=== PATIENT | female | born 1955 | race Asian ===

== ENCOUNTER 2017-03-11 08:30 | Inpatient (IN) | payer OTHER ==
[2017-03-07 18:40] VITALS: BMI 29.0
[2017-03-11] MEDS ORDERED: DEXAMETHASONE SOD PHOSPHATE/PF 10 MG/ML SDV ONE (10:41)
[2017-03-11] MEDS ORDERED: ROPIVACAINE HCL 0.5% 30ML VIAL ONE (10:41)
[2017-03-11] MEDS ORDERED: LIDOCAINE HCL 1%, 10 MG/ML (20ML VIAL) ONE (10:41)
[2017-03-11] MEDS ORDERED: MIDAZOLAM HCL 2 MG/2 ML SINGLE DOSE VIAL ONE ×2 (10:43)
[2017-03-11] MEDS ORDERED: ISOSULFAN BLUE 10 MG/ML VIAL SQ ONE (11:57)
[2017-03-11] MEDS ORDERED: PROPOFOL 20 ML ONE ×3 (11:58→12:39)
[2017-03-11] MEDS ORDERED: ceFAZolin SODIUM 1 GM VIAL ONE ×2 (12:02→18:18)
[2017-03-11] MEDS ORDERED: ceFAZolin SODIUM 1 GM VIAL IVPB ONE ×2 (12:05→12:19)
[2017-03-11] MEDS ORDERED: ONDANSETRON 4 MG/2 ML VIAL ONE (12:07)
[2017-03-11] MEDS ORDERED: oxyCODONE HCL 5 MG TABLET PO PRN ×2 (13:08→13:33)
[2017-03-11] MEDS ORDERED: ONDANSETRON 4 MG/2 ML VIAL IVPUSH PRN (13:08)
[2017-03-11] MEDS ORDERED: LACTATED RINGERS SOLUTION 1,000 ML IV SCH (13:15)
[2017-03-11] MEDS ORDERED: hydrOXYzine HCL 100 MG/2 ML VIAL IM PRN (13:33)
[2017-03-11] MEDS ORDERED: ONDANSETRON 4 MG/2 ML VIAL IVPB PRN (13:33)
[2017-03-11] MEDS ORDERED: MEPERIDINE HCL CARPU-JECT 50 MG/1 ML DISP.SYRIN IM PRN (13:33)
[2017-03-11] MEDS ORDERED: DEXTROSE 5%-0.45% SALINE 1,000 ML IV SCH (14:45)
[2017-03-11] MEDS ORDERED: CEFAZOLIN (PRE-DOCKED) 50 ML IVPB SCH (18:00)
[2017-03-11] MEDS ORDERED: DEXTROSE 5%-WATER - 50 ML IVPB ONE (18:19)
[2017-03-11] MEDS: CEFAZOLIN 1 GM in DEXTROSE 5%-WATER - 50 ML IVPB SCH (18:24)
[2017-03-11] MEDS ORDERED: PT OWN MED DRAWER 7, Y5N ONE (21:18)
[2017-03-12] MEDS ORDERED: ceFAZolin SODIUM 1 GM VIAL ONE ×2 (00:59→09:04)
[2017-03-12] MEDS ORDERED: DEXTROSE 5%-WATER - 50 ML IVPB ONE ×2 (01:00→09:04)
[2017-03-12] MEDS: ACETAMINOPHEN 500 MG TABLET (FP) PO PRN ×2 (01:03→11:53)
[2017-03-12] MEDS: CEFAZOLIN 1 GM in DEXTROSE 5%-WATER - 50 ML IVPB SCH ×2 (01:04→09:31)
--- NOTE | 2017-03-12 06:46 | OP ---
DATE OF OPERATION: 03/11/2017 PREOPERATIVE DIAGNOSIS: Right breast cancer. POSTOPERATIVE DIAGNOSIS: Right breast cancer. PROCEDURE: Right total mastectomy and sentinel node biopsy. SURGEON: Jaymie Brown MD TOWER LOADER OPERATOR: Dr. Flaherty ANESTHESIA: Paravertebral block and IV sedation. ESTIMATED BLOOD LOSS: 200 mL. DRAINS: JALIL x2. COMPLICATIONS: None. This was a sterile procedure. INDICATIONS: Patient presented with a palpable mass in the inferior right breast. This was highly suspicious on mammography and ultrasound. On ultrasound, she also had a second nodule closer to the nipple also in the right 6 o'clock location. Both these areas of biopsy showed an infiltrating ductal carcinoma. We discussed options of a lumpectomy with radiation versus mastectomy as well as a sentinel node biopsy, and she chose to have a mastectomy without reconstruction. The procedure was discussed with all the questions answered. PROCEDURE IN DETAIL: Patient was brought to [facility], taken down to nuclear medicine where technetium level sulfur colloid was injected as an intradermal injection in the right 6 o'clock areolar border by the life support technician. She was then brought up to the operating room, and after a paravertebral block and IV sedation, as well as IV antibiotics, the right breast and axilla were prepped and draped in the usual sterile fashion. Then, 5 mL of isosulfan blue dye was injected into the right subareolar plexus through four different incisions at the areolar border by me. The breast and axilla were then reprepped and redraped, and a 4-cm incision was made in the right axilla, carried down to the clavipectoral fascia to identify a set of blue and hot lymph nodes. There seemed to be about three together. This was taken as right axillary sentinel node No. 1 hot and blue. There was no other blue dye or radioactivity within the right axilla. There was another lymph node that was not blue or hot. However, it had a firmness to it. Therefore, I took it as a right axillary non-sentinel node. This was also sent to pathology for permanent section. Hemostasis was assured with electrocautery. Next a right mastectomy was performed. Ellipse of skin was taken to include the skin over the palpable mass in the right 6 o'clock location as well as the nipple areolar complex. Superior and inferior medial and lateral flaps were raised, and the breast was reflected off the pectoralis muscle, tacked with a stitch at the lateral edge, and sent it as a right mastectomy. There was excess skin that I took the entire edge of the superior flap, approximately 1 inch thick, as well as part of the inferior flap, as well, and this was tagged with a long stitch lateral, short stitch superior, sent as a right superior flap. I also took an additional smaller inferior flap for better closure of skin, and this was sent as right inferior flap. I did put a silk stitch, provided that way I was the closest on the skin to the tumor in the right 6 o'clock location. Once hemostasis was assured with electrocautery, through two separate stab wounds, two 10-mm JALIL drains were placed within the mastectomy flaps and secured to the skin with a 3-0 nylon stitch. Once hemostasis was assured, the skin was closed with skin stapler, sterile dressing of Vaseline gauze, fluffs, and ABDs were applied as well as a mammary binder. She tolerated the procedure well, was taken to recovery in good condition. Stan [id number]
[2017-03-12 13:58] VITALS: BP 108/74; PULSE 79; TEMP 98.5
--- NOTE | 2017-03-12 14:40 | PN ---
Progress Note (short form) - Note Progress Note: pod 1 afeb, vss R mastectomy site intact, JPs in place. d/c home today
--- NOTE | 2017-03-15 16:05 | PATH ---
Surgical Pathology Report Patient Name: SHERYL SAMPSON [facility]. Rec. #: [id number] /Age/Gender: 1955 (Age: 61) / F Account: [id number] Location: [facility] MED/SURG Taken: 03/11/2017 Received: 03/12/2017 Reported: 03/15/2017 Physicians: Jaymie Brown M.D. Specimen(s) Received A: RIGHT AXILLARY SENTINEL LYMPH NODE B: RIGHT AXILLARY NON-SENTINAL NODE C: RIGHT BREAST, MASTECTOMY D: RIGHT SUPERIOR MASTECTOMY FLAP E: RIGHT INFERIOR MASTECTOMY FLAP Clinical History Mastectomy: Invasive carcinoma Final Diagnosis A. LYMPH NODE, RIGHT AXILLARY SENTINEL, EXCISION: METASTATIC CARCINOMA INVOLVING ONE OF TWO LYMPH NODES (1/2); THE LARGEST FOCUS OF METASTATIC CARCINOMA MEASURES 3 MM IN GREATEST DIMENSION (MACROMETASTASIS). EXTRANODAL EXTENSION IS PRESENT. B. LYMPH NODE, RIGHT AXILLARY NON-SENTINEL, EXCISION: METASTATIC CARCINOMA INVOLVING ONE OF ONE LYMPH NODE (1/1); THE LARGEST FOCUS OF METASTATIC CARCINOMA MEASURES 1.5 MM IN GREATEST DIMENSION (MICROMETASTASIS). NO EXTRANODAL EXTENSION IS IDENTIFIED. C. BREAST, RIGHT, MASTECTOMY: MULTIPLE (AT LEAST FOUR) FOCI OF INVASIVE DUCTAL CARCINOMA, MODERATELY DIFFERENTIATED (TUBULE SCORE: 3/3, NUCLEAR GRADE: 2/3, MITOTIC SCORE: 2/3; TOTAL HANNAH SCORE: 7/9), PRESENT IN THE LOWER OUTER QUADRANT (LOQ): THE LARGEST FOCUS OF INVASIVE CARCINOMA MEASURES 2.7 CM IN GREATEST DIMENSION (GROSS MEASUREMENT) WITH SURROUNDING SATELLITE TUMOR NODULES (AT LEAST THREE) RANGING FROM 2-8 MM IN GREATEST DIMENSION. DUCTAL CARCINOMA IN SITU (DCIS), CRIBRIFORM AND SOLID TYPE, INTERMEDIATE NUCLEAR GRADE IS PRESENT IN THE LOQ ADMIXED WITH INVASIVE CARCINOMA WELL MULTIPLE SCATTERED FOCI PRESENT IN THE REMAINING THREE QUADRANTS. SURGICAL MARGINS ARE UNINVOLVED BY CARCINOMA; CARCINOMA IS AT 4 MM FROM THE CLOSEST (ANTERIOR) MARGIN. THE LARGEST FOCUS OF INVASIVE CARCINOMA INVADES DEEP DERMIS OF SKIN; NO SKIN ULCERATION IS IDENTIFIED. NIPPLE IS UNINVOLVED BY CARCINOMA. A FEW FOCI SUSPICIOUS FOR LYMPHOVASCULAR INVASION ARE IDENTIFIED. PRIOR BIOPSY SITE CHANGES ARE IDENTIFIED. REMAINING BREAST TISSUE SHOWS SMALL FIBROADENOMAS, PROLIFERATIVE FIBROCYSTIC CHANGES AND SCLEROSING ADENOSIS. PATHOLOGIC STAGE (pTNM): pT2(m) pN1a. SEE ALSO INVASIVE CARCINOMA CASE SUMMARY BELOW. D. MASTECTOMY FLAP, RIGHT SUPERIOR, EXCISION: SKIN SHOWING SEBORRHEIC KERATOSIS. NEGATIVE FOR MALIGNANCY. E. MASTECTOMY FLAP, RIGHT INFERIOR, EXCISION: SKIN WITH NO PATHOLOGIC FINDINGS. NEGATIVE FOR MALIGNANCY. Comments Breast Invasive Carcinoma: Surgical Pathology Cancer Case Summary Based on AJCC/UICC TNM, 7th edition Procedure _X_ Total mastectomy (including nipple and skin) Lymph Node Sampling _X_ [place] lymph node(s) Specimen Laterality _X_ Right Tumor Size: Size of Largest Invasive Carcinoma: 2.7 cm Tumor Focality _X_ Multiple foci of invasive carcinoma Number of foci: 4 Sizes of individual foci: 0.2 cm, 0.2 cm, 0.8 cm, 2.7 cm Macroscopic and Microscopic Extent of Tumor Skin _X_ Invasive carcinoma directly invades into the dermis or epidermis without skin ulceration Nipple _X_ DCIS does not involve the nipple epidermis Ductal Carcinoma In Situ (DCIS) _X_ DCIS is present _X_ as a minor component (< 25% of tumor) Histologic Type of Invasive Carcinoma : _X_ Invasive carcinoma of no special type (ductal, not otherwise specified) Histologic Grade: (Logan Histologic Score) Tubular Differentiation _X_ Score 3 Nuclear Pleomorphism _X_ Score 2 Mitotic Rate _X_ Score 2 Overall Grade _X_ Grade 2: scores of 6 or 7 (moderately differentiated) Margins _X_ Margins uninvolved by invasive carcinoma Distance from closest margin: 4 mm from anterior margin _X_ Margins uninvolved by DCIS Distance from closest margin: > 1 cm Lymph-Vascular Invasion _X_ Indeterminate Lymph Nodes Total number of lymph nodes examined (sentinel and nonsentinel): 3 Number of sentinel lymph nodes examined: 2 Number of lymph nodes with macrometastases ( > 2 mm): 1 Number of lymph nodes with micrometastases (>0.2 mm to 2 mm and/or >200cells):1 Number of lymph nodes with isolated tumor cells (=0.2 mm and =200 cells): 0 Size of largest metastatic deposit : 3 mm Extranodal Extension _X_ Present Pathologic Staging (pTNM) Primary Tumor (Invasive Carcinoma): pT2(m) Regional Lymph Nodes (pN): pN1a(sn) Biomarker Studies Results of ER and WY studies performed on prior biopsy ([id number]) at [facility] are as follows: ER (clone [id number] mouse monoclonal antibody by [employer]) : >95 % nuclear staining with strong intensity (Positive). WY (clone16 mouse monoclonal antibody by [employer]): > 95 % nuclear staining with strong to moderate intensity (Positive). Results of Her2 (IHC) & Ki-67 studies performed on prior biopsy ( [id number]) at [place], [place] ( [id number] ) are as follows: Her2 IHC (EP3 from [employer], formerly known as [id number], using S[employer] Polymer Refine detection kit): 0 (Negative). Ki67: 15-20% (Intermediate proliferative index). Electronically Signed Opal Garcia M.D. Gross Description A. Received in formalin labeled "right axillary sentinel node," are 2 ramos blue, irregular lymph nodes measuring 1.5 x 1.0 x 0.6 cm and 1.5 x 0.9 x 0.6 cm. The nodes are bisected and entirely submitted in 4 cassettes as follows: 1-2-one whole bisected lymph node; 3-4-one whole bisected lymph node. B. Received in formalin labeled "right axillary non-sentinel node," is a 1.1 x 0.8 x 0.6 cm ramos, irregular lymph node with attached fat. The specimen is bisected and entirely submitted in one cassette. C. Received in formalin, labeled "right mastectomy," is a 1145 gram, 18.0 x 17.0 x 7.8 cm. right mastectomy specimen with a suture marking the lateral edge of the skin, per the surgeon. The anterior surface displays a 14.5 x 9.5 cm ramos, elliptical portion of skin with a 1.1 cm in diameter nipple. The deep margin is inked black and the anterior soft tissue margin is inked blue. The specimen is serially sectioned from lateral to medial. Sectioning reveals a 2.7 x 1.7 x 1.5 cm ramos, firm mass in the lower outer quadrant (LOQ), abutting the skin. The mass is at 0.4 cm from the anterior soft tissue margin. There is a 0.8 x 0.6 x 0.6 cm additional mass with a focus of hemorrhage at 2 cm superior to the first mass, also in LOQ. The second mass is at 2 cm from the skin. The remaining breast parenchyma displays multiple foci of dense white fibrous tissue. Racing Board Marker sections are submitted in 27 cassettes as follows: 1-serially sectioned nipple; 2-subareolar shave; 3-4-one full-thickness bisected section of mass; 5-4-scfakjcbtv full-thickness bisected section of mass; 7-additional mass; 8-14-LOQ, second mass with associated hemorrhage; 02-11-dpggwuzayx LOQ tissue; 17-19-upper outer quadrant; 20-22-upper inner quadrant; 23-25-lower inner quadrant; 26-skin and anterior soft tissue margin; 27-deep margin. Time to formalin fixation: Not given Total formalin fixation time: Approximately 24 hours D. Received in formalin labeled "right superior mastectomy flap," is a 23.5 x 12.0 cm ramos, irregular portion of skin excised to depth of 1.1 cm. There is a short suture marking the superior aspect and a long suture marking the lateral aspect of the specimen, per the surgeon. The epidermal surface displays 2 ramos-brown, irregular nodules measuring 0.5 x 0.3 cm and 0.8 x 0.7 cm at the superior-medial aspect of the specimen. The remaining epidermal surface is unremarkable. The specimen is inked as follows: Superior blue; inferior green; lateral red; medial yellow. Sectioning reveals unremarkable underlying soft tissue. Racing Board Marker sections are submitted in 8 cassettes as follows: 1-2-larger epidermal nodule; 3-smaller epidermal nodule; 4-7-xrhhmktj margin; 7-superior margin; 8-medial and lateral margins. E. Received in formalin labeled "right inferior mastectomy flap," is a 2.8 x 1.0 cm ramos, elliptical, unoriented portion of skin excised to a depth of 0.8 cm. The epidermal surface is unremarkable. Sectioning reveals unremarkable underlying soft tissue. The specimen is serially sectioned and entirely submitted in 2 cassettes. 03/12/201703/12/2017
== END 2017-03-12 15:30 | disposition home or self-care (01) | DRG 580 ==
LOC: JSAMEDAYSX 08:30 → EDSTATUS 11:00 → J8W 16:45
PROVIDERS: ADMIT Surgery; ATTEND Surgery
PROC: 0HTT0ZZ Resection of Right Breast, Open Approach (ICD-10-PCS; principal; 2017-03-11 11:00)
PROC: 07B50ZZ Excision of Right Axillary Lymphatic, Open Approach (ICD-10-PCS; 2017-03-11 11:00)
DX: D05.11 Intraductal carcinoma in situ of right breast (principal); C77.3 Secondary and unspecified malignant neoplasm of axilla and upper limb lymph nodes; C50.511 Malignant neoplasm of lower-outer quadrant of right female breast
CPT/HCPCS: 88305-TC; 88307-TC; 94760; A9541

== ENCOUNTER 2017-03-26 11:30 | Day surgery (SDC) | payer OTHER ==
[2017-03-25 14:01] VITALS: BMI 29.0
[2017-03-26] MEDS ORDERED: DESFLURANE GAS 240 ML BOTTLE IH ONE (13:07)
[2017-03-26] MEDS ORDERED: MIDAZOLAM HCL 2 MG/2 ML SINGLE DOSE VIAL ONE (13:12)
[2017-03-26] MEDS ORDERED: LIDOCAINE HCL/PF 2% SDV 5ML VIAL ONE (13:13)
[2017-03-26] MEDS ORDERED: DEXAMETHASONE SOD PHOSPHATE 4 MG/1 ML VIAL ONE (13:13)
[2017-03-26] MEDS ORDERED: PROPOFOL 20 ML ONE ×2 (13:14)
[2017-03-26] MEDS ORDERED: BUPIVACAINE HCL/PF 0.5% (5MG/ML) 10 ML VIAL ONE (13:20)
[2017-03-26] MEDS ORDERED: ISOSULFAN BLUE 10 MG/ML VIAL SQ ONE (13:20)
[2017-03-26] MEDS ORDERED: ceFAZolin SODIUM 1 GM VIAL IVPB ONE (13:40)
[2017-03-26] MEDS ORDERED: ePHEDrine SULFATE 50 MG/1 ML AMPULE ONE (14:25)
[2017-03-26] MEDS ORDERED: BUPIVACAINE HCL/PF 0.5% (5MG/ML) 10 ML VIAL IJ ONE (14:36)
[2017-03-26] MEDS ORDERED: ONDANSETRON 4 MG/2 ML VIAL IVPUSH PRN (15:00)
[2017-03-26] MEDS ORDERED: LACTATED RINGERS SOLUTION 1,000 ML IV SCH (15:00)
[2017-03-26] MEDS ORDERED: oxyCODONE HCL 5 MG TABLET PO PRN ×2 (15:00)
--- NOTE | 2017-03-26 15:35 | OP ---
DATE OF OPERATION: 03/26/2017 PREOPERATIVE DIAGNOSIS: Right breast cancer, positive right axillary sentinel lymph node. POSTOPERATIVE DIAGNOSIS: Right breast cancer, positive right axillary sentinel lymph node. PROCEDURE: Right completion lymph node dissection. SURGEON: Jaymie Amin MD ANESTHESIA: General. ESTIMATED BLOOD LOSS: 50 mL DRAINS: JALIL x1. COMPLICATIONS: None. This was a sterile procedure. INDICATION FOR SURGERY: Patient had a right mastectomy with sentinel node biopsy. One sentinel node and 1 non-sentinel node were positive for invasive carcinoma. Therefore, my recommendation was a completion node dissection. The procedure was discussed with all her questions answered. PROCEDURE IN DETAIL: Patient was brought to [facility] and taken into the operating room, and after induction of general anesthesia and IV antibiotics, the right axilla was prepped and draped in the usual sterile fashion. The prior incision in the right axilla was reopened sharply, and a completion node dissection was performed. Care was taken to preserve the long thoracic and the thoracodorsal neurovascular bundles. The entire fat pad was removed and sent to Pathology for permanent section in formalin. There were no other pathologic lymph nodes in the right axilla. A 10-mm JALIL drain was then placed into the right axillary cavity through a separate stab wound and secured to the skin with a 3-0 nylon stitch. The incision was then closed in a routine fashion with interrupted 0 Vicryl and running 4-0 Biosyn. Sterile dressing of Steri-Strips and 4 x 4's applied. She tolerated the procedure well and was extubated on the operating room table, taken to recovery in good condition. JAYMIE AMIN M.D. [id number]
[2017-03-26] MEDS ORDERED: HYDROmorphone HCL CARPU-JECT 2 MG/1 ML DISP.SYRIN ONE (16:45)
[2017-03-26] MEDS: HYDROmorphone HCL CARPU-JECT 1 MG/1 ML DISP.SYRIN IVPUSH PRN ×2 (16:50→17:00)
[2017-03-26 19:21] VITALS: TEMP 98.5
[2017-03-26 19:23] VITALS: BP 135/85; PULSE 65
--- NOTE | 2017-03-28 15:22 | PATH ---
Surgical Pathology Report Patient Name: SHERYL SAMPSON [facility]. Rec. #: [id number] /Age/Gender: 1955 (Age: 61) / F Account: [id number] Location: [facility] SURGICAL Taken: 03/26/2017 Received: 03/27/2017 Reported: 03/28/2017 Physicians: Jaymie Brown M.D. Specimen(s) Received RIGHT AXILLARY CONTENTS Clinical History Right breast cancer Final Diagnosis LYMPH NODES, RIGHT AXILLARY, DISSECTION: NO METASTATIC CARCINOMA IDENTIFIED IN FOURTEEN LYMPH NODES (0/14). Comment: The stage remains pT2(m) pN1a. See prior specimen [id number]. Electronically Signed Franklin De León M.D. Gross Description Received in formalin labeled "right axillary contents," is 11.0 x 9.5 x 2.5 cm aggregate of yellow, lobulated adipose t /03/27/2017issue. Sectioning reveals a focus of hemorrhage, possibly consistent with a biopsy site. There are additional foci of firm tissue with fat necrosis as well as multiple lymph nodes identified. Nursing Assoc sections are submitted in 26 cassettes as follows: 5-0-bxrhamfy sectioned possible previous biopsy site; 6-28-hatsfiug sectioned focus of fat necrosis (possible lymph node); 11-13-one whole serially sectioned possible lymph node; 14-15-one whole bisected possible lymph node; 16-17-one whole bisected possible lymph node; 18-21-one bisected possible lymph node each; 22-23-one whole trisected lymph node; 52-23-jehcease whole lymph nodes each. [facility]03/27/2017
== END 2017-03-26 19:41 | disposition home or self-care (01) ==
LOC: JASU-SURG 11:30
PROVIDERS: ATTEND Surgery
PROC: 07B50ZX Excision of Right Axillary Lymphatic, Open Approach, Diagnostic (ICD-10-PCS; principal; 2017-03-26 13:00)
DX: C50.911 Malignant neoplasm of unspecified site of right female breast (principal)
CPT/HCPCS: 88307-TC; 94760

== ENCOUNTER 2019-01-15 14:11 | Day surgery (SDC) | payer OTHER ==
[~2019-01-15 14:11] MED LIST: ZOLEDRONIC ACID 4 MG in SODIUM CHLORIDE 100 ML IVPB ONE
[2019-01-15 17:29] LABS: BASO % 0.3 % (0-2.0); EOS % 2.1 % (0-4.5); HEMATOCRIT 40.3 % (32.4-45.2); HEMOGLOBIN 13.1 GM/dL (10.7-15.3); LYMPH % 36.6 % (8-40); MCH 26.7 pg (25.7-33.7); MCHC 32.5 g/dl (32.0-36.0); MEAN CELL VOLUME 82.2 fl (80-96); MEAN PLT VOLUME 8.1 fl (7.5-11.1); MONO % 5.5 % (3.8-10.2); NEUT % 55.5 % (42.8-82.8); PLATELET COUNT 197 K/MM3 (134-434); RDW 13.5 % (11.6-15.6); WHITE BLOOD COUNT 5.2 K/mm3 (4.0-10.0)
[2019-01-15 17:31] LABS: ALBUMIN 3.6 g/dl (3.4-5.0); BILIRUBIN,DIRECT 0.1 mg/dL (0.0-0.2); BILIRUBIN,TOTAL 0.3 mg/dL (0.2-1); BLOOD UREA NITROGEN 12.1 mg/dL (7-18); CALCIUM 9.1 mg/dL (8.5-10.1); CREATININE 0.9 mg/dL (0.55-1.3); MAGNESIUM 2.2 mg/dL (1.8-2.4); POTASSIUM 3.8 mmol/L (3.5-5.1); TOT PROT 6.9 g/dl (6.4-8.2)
[2019-01-15 17:59] VITALS: TEMP 97.8
[2019-01-15] MEDS ORDERED: ZOLEDRONIC ACID 4 MG in SODIUM CHLORIDE 100 ML IVPB ONE (18:00)
[2019-01-15 19:06] VITALS: BP 133/86; PULSE 70
== END 2019-01-15 19:05 | disposition home or self-care (01) ==
LOC: JONCCHEMO 14:11 → J7W 16:27 → JONCCHEMO 19:05
PROVIDERS: ATTEND Internal Medicine Hematology & Oncology
PROC: 3E033GC Introduction of Other Therapeutic Substance into Peripheral Vein, Percutaneous Approach (ICD-10-PCS; principal; 2019-01-15)
DX: C50.919 Malignant neoplasm of unspecified site of unspecified female breast (principal)
CPT/HCPCS: 36415; 80048; 80076; 83735; 85025; 96365; 96417; J3489

== ENCOUNTER 2019-01-16 15:56 | Emergency (ER) | payer OTHER ==
--- NOTE | 2019-01-16 16:02 | PDOC ---
Rapid Medical Evaluation Time Seen by Provider: 01/16/19 15:59 Medical Evaluation: Allergies Allergy/AdvReac Type Severity Reaction Status Date / Time Sulfa (Sulfonamide Allergy Rash Verified 03/26/17 12:09 Antibiotics) 01/16/19 16:00 I have performed a brief in-person evaluation of this patient. The patient presents with a chief complaint of: Body aches, FRIAS, subj fever and ? sob since last night. Was in hospital yesterday receiving IV meds for her osteoporosis. Also has h/o R breast ca, s/p surgery/xrt in 2017 Pertinent physical exam findings: F 101.1 w/ HR 100, in NAD I have ordered the following:CXR/flu The patient will proceed to the ED for further evaluation. Discharge Disposition - Diagnosis Viral syndrome - Referrals - Patient Instructions - Post Discharge Activity
[2019-01-16 16:26] VITALS: BMI 26.8
[2019-01-16] MEDS ORDERED: IBUPROFEN 600 MG TABLET (FP) PO ONE ×2 (17:03→17:05)
[2019-01-16 17:09] LABS: BASO % 0.4 % (0-2.0); EOS % 0.5 % (0-4.5); HEMATOCRIT 40.8 % (32.4-45.2); HEMOGLOBIN 13.5 GM/dL (10.7-15.3); LYMPH % 10.8 % (8-40); MCHC 33.2 g/dl (32.0-36.0); MEAN CELL VOLUME 81.5 fl (80-96); MEAN PLT VOLUME 7.5 fl (7.5-11.1); MONO % 4.6 % (3.8-10.2); NEUT % 83.7 % (42.8-82.8); PLATELET COUNT 137 K/MM3 (134-434); RBC 5.01 M/mm3 (3.60-5.2); RDW 13.3 % (11.6-15.6); WHITE BLOOD COUNT 4.4 K/mm3 (4.0-10.0)
[2019-01-16 17:12] LABS: VENOUS PC02 31.8 mmHg (41-51); VENOUS PH 7.45 (7.31-7.41); VENOUS PO2 59.9 mmHg (30-40)
[2019-01-16 17:24] LABS: INR 1.03 (0.83-1.09); PROTHROMBIN TIME (PATIENT) 12.1 SEC (9.7-13.0)
[2019-01-16] MEDS ORDERED: SODIUM CHLORIDE 0.9% 500 ML INFUS.BAG IV ONE (17:26)
[2019-01-16 17:27] LABS: ACTIVATED PTT 30.1 SECONDS (25.2-36.5)
[2019-01-16 17:35] LABS: URINE APPEARANCE CLEAR; URINE BILIRUBIN NEGATIVE (NEGATIVE); URINE COLOR YELLOW; URINE GLUCOSE (UA) 3+ (NEGATIVE); URINE KETONE TRACE (NEGATIVE); URINE LEUK ESTERASE NEGATIVE (NEGATIVE); URINE NITRITE NEGATIVE (NEGATIVE); URINE PROTEIN NEGATIVE (NEGATIVE); URINE UROBILINOGEN 0.2 mg/dL (0.2-1.0)
[2019-01-16 17:52] LABS: ALBUMIN 3.6 g/dl (3.4-5.0); BILIRUBIN,TOTAL 0.6 mg/dL (0.2-1); BLOOD UREA NITROGEN 11.5 mg/dL (7-18); CALCIUM 8.8 mg/dL (8.5-10.1); POTASSIUM 3.6 mmol/L (3.5-5.1); TOT PROT 7.2 g/dl (6.4-8.2)
[2019-01-16 17:53] LABS: CREATININE 0.8 mg/dL (0.55-1.3)
--- NOTE | 2019-01-16 18:08 | PDOC ---
Attending Attestation - Resident Resident Name: Ryne Beaulieu - ED Attending Attestation I have performed the following: I have examined & evaluated the patient, The case was reviewed & discussed with the resident, I agree w/resident's findings & plan - HPI HPI: 01/16/19 18:15 63 YOF with h/o R breast ca, s/p surgery/xrt in 2017, osteoporosis, currently on oral hormonal therapy, presenting with fever, sore throat, headache, myalgias and sob x 2 days beginning yesterday she had a recent inj of zoledronic acid for osteoporosis, for the first time yesterday for her OP, after developed symptoms no travel no sick contacts. no n/v/d, rash, cp, cough. took tylenol DESIGN TECH for fever, still with fever. 01/16/19 19:32 - Physicial Exam PE: 01/16/19 18:16 Agree with the resident's HPI and PE as documented in the electronic medical record. NAD, alert, EOMI, PERRL, MMM, nl conjunctiva, anicteric; oropharynx clear, phonation normal, neck supple. no meningismus, lungs clear, no respiratory distress, RRR, abdomen soft nontender. Back nontender. BUTLER x4, no focal neuro deficits. No peripheral edema. normal color for ethnicity, WWP. 01/16/19 18:17 - Medical Decision Making 01/16/19 18:17 See HPI for details. Prior notes reviewed, including admissions, discharges and consultations. Vital signs reviewed, +fever, mild tachypnea, normal sats and HR DDX pharyngitis, strep, URI, pneumonia, dehydration, electrolyte/metabolic derangements, medication side effect laboratory results and imaging reviewed, basic labs and lytes wnl, notable for neg flu lactic mildly elevated 2.1, rechecked after fluids and normalized which is reassuring trop neg. strep test neg, f/u culture. UA_neg for infection Interpreted by ED Physician: CXR (1 view AP view): right sided opacity vs retrocardiac opacity, bones appear intact and structures normal alignment, cardiac silhouette within normal limits. however, mediastinum appears relatively widened, ?rotational vs opacity?, vs vascular. no free air under diaphragm, no pneumothorax, no effusion or blunting of costophrenic angle. repeated CXR with PA/lateral - normal mediastinum, prominent vs opacity in right hilar region, treat as atypical pna. EKG normal sinus rhythm at 88 bpm, no interval abnormalities, narrow QRS, ST and T wave segments and morphology normal. Nonspecific T wave abnormalities in III TWI ED course -interventions:IVF, antipyretics, feels much improved on reexamination most likely viral syndrome, as she is clinically improved, nontoxic appearing. CXR ?pna, will give abx. z prieto x 5 days the nonspecific sx after bisphosphonate inj likely med effect, with up to 30-40 % side effects of sob, fever, malaise repeat VS normalized, no respiratory distress supportive care, hydration Pt to be discharged in stable condition. Patient and family made aware of clinical impression, treatment recommendations and disposition plan, return precautions discussed (including but not limited to new or persistent/worsening symptoms, pain, fevers, or signs of infection, chest pain, respiratory distress , inability to tolerate oral intake, dehydration, syncope, or neurologic changes ). Follow up with PMD as recommended, follow up information provided, take medications as instructed for duration of time. continue with supportive care, avoid triggers and precipitants. All questions answered to patient's satisfaction and expressed understanding and comfort with this. At the time of discharge, the patient is alert, clinically improved, tolerating po and verbalizes understanding of instructions, satisfied with the care received and felt comfortable with the plan. Patient does not suffer from an acute life- threatening medical condition at this time and is safe for outpatient follow- up. 01/16/19 19:50 *DC/Admit/Observation/Transfer Diagnosis at time of Disposition: Fever, Medication side effect - Discharge Dispostion Disposition: HOME Condition at time of disposition: Improved Decision to Admit order: No - Prescriptions Prescriptions: Azithromycin 250 mg PO DAILY #4 tablet - Referrals Referrals: Mani Aguiar MD [Primary Care Provider] - - Patient Instructions Printed Discharge Instructions: DI for Pneumonia -- Adult, DI for Fever ( Symptom) -- Adult Additional Instructions: 1) Please follow-up with your primary care doctor in the next 1-2 days. Please call tomorrow for for any urgent issues. you may have a pneumonia on right side based on chest x ray. you may have had a medication side effect from the injection for your osteoporosis, with side effect profile causing headache, fever, pain, malaise, nausea and other nonspecific symptoms. please discuss with your primary doctor 2) You were given a copy of the tests performed today. Please bring the results with you and review them with your primary care doctor. Your laboratory / imaging results were reviewed 3) If you have any worsening of symptoms or any other concerns please return to the ED immediately. Return if worsening symptoms including fevers, headache, vomiting, visual or hearing disturbances, abdominal pain, chest pain, shortness of breath, syncope, dehydration, inability to take things by mouth/vomiting, altered mental status, or worsening concerning symptoms. 4) Please continue taking your home medications as directed. your medications on discharge include Azithromycin x 4 more days starting Tomorrow (first dose today in the department) . side effects may include upset stomach, abdominal pain, vomiting, or diarrhea. do not drink alcohol with your medications. Stay well hydrated and rest adequately. Make an appointment. If you cannot follow-up with your primary care doctor please return to the ED - Post Discharge Activity Heart Score/ECG Review #1 ECG reviewed & interpreted by me at: 17:15 General ECG Interpretation: Sinus Rhythm, Normal Rate, Normal Intervals Compared to previous ECG there are: No significant change 01/16/19 18:19 EKG normal sinus rhythm at 88 bpm, no interval abnormalities, narrow QRS, ST and T wave segments and morphology normal. Nonspecific T wave abnormalities in III TWI
--- NOTE | 2019-01-16 18:25 | PDOC ---
History of Present Illness - General History Source: Patient Exam Limitations: No Limitations - History of Present Illness Initial Comments: 01/16/19 18:09 63F with a PMH of osteoporosis, HTN, HLD, DM, who presents to the ER with 1.5 days of fever, myalgias, sore throat, and low back pain. The patient states that she received an infusion for her osteoporosis (Zometa) and later that night , started developing a fever and myalgias. She states that she tried to take tylenol today for her fever but it continued to return. She denies nausea, vomiting, CP, SOB, numbness, tingling, weakness, or vision changes. <Ryne Beaulieu - Last Filed: 01/16/19 18:59> <Liberty Arboleda - Last Filed: 01/16/19 20:00> - General Chief Complaint: SIRS, Suspected/Possible Stated Complaint: FEVER Time Seen by Provider: 01/16/19 15:59 Past History - Past Medical History Anemia: No Asthma: No Cancer: Yes (RIGHT BREAST) Cardiac Disorders: No CVA: No COPD: No CHF: No Dementia: No Diabetes: Yes GI Disorders: No Disorders: No HTN: Yes Hypercholesterolemia: Yes Liver Disease: No Seizures: No Thyroid Disease: No - Suicide/Smoking/Psychosocial Hx Smoking History: Never smoked Hx Alcohol Use: No Drug/Substance Use Hx: No Substance Use Type: None Hx Substance Use Treatment: No <Ryne Beaulieu - Last Filed: 01/16/19 18:59> <Liberty Arboleda - Last Filed: 01/16/19 20:00> - Past Medical History Allergies/Adverse Reactions: Allergies Allergy/AdvReac Type Severity Reaction Status Date / Time Sulfa (Sulfonamide Allergy Rash Verified 01/16/19 15:59 Antibiotics) Home Medications: Ambulatory Orders Metoprolol Succinate [Toprol Xl -] 50 mg PO DAILY 03/07/17 Ramipril [Altace] 5 mg PO DAILY 03/07/17 Simvastatin [Zocor -] 20 mg PO HS 03/07/17 Acetaminophen [Tylenol] 650 mg PO QID PRN 01/16/19 Azithromycin 250 mg PO DAILY #4 tablet 01/16/19 Glipizide/Metformin HCl [Glipizide-Metformin 5-500 mg] 1 each PO TID 01/16/19 Review of Systems - Review of Systems Able to Perform ROS?: Yes Comments:: 01/16/19 18:34 GENERAL/CONSTITUTIONAL: + for fever and chills. No weakness. HEAD, EYES, EARS, NOSE AND THROAT: No change in vision. No ear pain or discharge. No sore throat. CARDIOVASCULAR: No chest pain, palpitations, or lightheadedness. RESPIRATORY: No cough, wheezing, shortness of breath, or hemoptysis. GASTROINTESTINAL: No abdominal pain, nausea, vomiting, diarrhea, or constipation. GENITOURINARY: No dysuria, frequency, hematuria, or change in urination. MUSCULOSKELETAL: + for myalgias and low back pain. SKIN: No rash or lesions. NEUROLOGIC: No headache, numbness, tingling, focal weakness, loss of consciousness, or change in strength/sensation. Is the patient limited Japanese proficient: No <Ryne Beaulieu - Last Filed: 01/16/19 18:59> *Physical Exam - Vital Signs Last Vital Signs Temp Pulse Resp BP Pulse Ox 101.1 F H 99 H 28 H 142/84 100 01/16/19 16:05 01/16/19 16:05 01/16/19 16:05 01/16/19 16:05 01/16/19 16:05 - Physical Exam Comments: 01/16/19 18:35 GENERAL: Well developed, well nourished. Awake and alert. No acute distress. HEENT: Normocephalic, atraumatic. Hearing grossly normal. Moist mucous membranes. PERRLA, EOMI. No conjunctival pallor. Sclera are non-icteric. Oropharynx is clear. NECK: Supple. Full ROM. No JVD. CARDIOVASCULAR: Regular rate and rhythm. No murmurs, rubs, or gallops. PULMONARY: No evidence of respiratory distress. Lungs sounds slightly diminished at bases. No wheezing, rales or rhonchi. ABDOMINAL: Soft. Non-tender. Non-distended. No rebound or guarding. GENITOURINARY: No CVA tenderness bilaterally. MUSCULOSKELETAL: Normal range of motion at all joints. No bony deformities or tenderness. EXTREMITIES: No cyanosis. No clubbing. No edema. No calf tenderness or swelling. SKIN: Warm and dry. Normal capillary refill. No rashes. No jaundice. NEUROLOGICAL: Alert, awake, appropriate. Cranial nerves 2-12 grossly intact. Normal speech. Gait is normal without ataxia. PSYCHIATRIC: Cooperative. Good eye contact. Appropriate mood and affect. <ChristoferRyne - Last Filed: 01/16/19 18:59> - Vital Signs Last Vital Signs Temp Pulse Resp BP Pulse Ox 98.7 F 84 20 123/79 97 01/16/19 19:43 01/16/19 19:43 01/16/19 19:43 01/16/19 19:43 01/16/19 19:43 <Liberty Arboleda - Last Filed: 01/16/19 20:00> ED Treatment Course - LABORATORY CBC & Chemistry Diagram: 01/16/19 16:55 01/16/19 16:55 - ADDITIONAL ORDERS Additional order review: Laboratory Results 01/16/19 01/16/19 01/16/19 16:55 16:55 16:55 PT with INR INR PTT (Actin FS) VBG pH 7.45 H POC VBG pCO2 31.8 L POC VBG pO2 59.9 H VBG HCO3 21.6 L VBG O2 Sat (Lauren) 90.2 H VBG Base Excess -1.2 Sodium Potassium Chloride Carbon Dioxide Anion Gap BUN Creatinine Est GFR (CKD-EPI)AfAm Est GFR (CKD-EPI)NonAf Random Glucose Lactic Acid 2.1 H Calcium Total Bilirubin AST ALT Alkaline Phosphatase Troponin I < 0.02 Total Protein Albumin Urine Color Urine Appearance Urine pH Ur Specific [place] Urine Protein Urine Glucose (UA) Urine Ketones Urine Blood Urine Nitrite Urine Bilirubin Urine Urobilinogen Ur Leukocyte Esterase 01/16/19 01/16/19 01/16/19 16:55 16:55 16:30 PT with INR 12.10 INR 1.03 PTT (Actin FS) 30.1 VBG pH POC VBG pCO2 POC VBG pO2 VBG HCO3 VBG O2 Sat (Lauren) VBG Base Excess Sodium 141 Potassium 3.6 Chloride 109 H Carbon Dioxide 23 Anion Gap 9 BUN 11.5 Creatinine 0.8 Est GFR (CKD-EPI)AfAm 92.22 Est GFR (CKD-EPI)NonAf 79.57 Random Glucose 164 H Lactic Acid Calcium 8.8 Total Bilirubin 0.6 AST 23 ALT 47 Alkaline Phosphatase 128 H Troponin I Total Protein 7.2 Albumin 3.6 Urine Color Yellow Urine Appearance Clear Urine pH 5.0 Ur Specific [place] 1.032 Urine Protein Negative Urine Glucose (UA) 3+ H Urine Ketones Trace H Urine Blood Negative Urine Nitrite Negative Urine Bilirubin Negative Urine Urobilinogen 0.2 Ur Leukocyte Esterase Negative 01/16/19 16:55 RBC 5.01 MCV 81.5 MCHC 33.2 RDW 13.3 MPV 7.5 Neutrophils % 83.7 H D Lymphocytes % 10.8 D Monocytes % 4.6 Eosinophils % 0.5 Basophils % 0.4 - RADIOLOGY Radiology Studies Ordered: Category Date Time Status CHEST X-RAY PORTABLE* [RAD] Stat Radiology 01/16/19 18:01 Ordered - Medications Given in the ED: ED Medications Discontinued Medications Generic Name Dose Route Start Last Admin Trade Name Isaccq PRN Reason Stop Dose Admin Ibuprofen 600 mg 01/16/19 17:03 01/16/19 17:13 Motrin - PO 01/16/19 17:04 600 mg ONCE ONE Administration Sodium Chloride 1,000 ml 01/16/19 17:26 01/16/19 18:02 Normal Saline - IV 01/16/19 17:27 1,000 ml ONCE ONE Administration <Ryne Beaulieu - Last Filed: 01/16/19 18:59> - LABORATORY CBC & Chemistry Diagram: 01/16/19 16:55 01/16/19 16:55 - ADDITIONAL ORDERS Additional order review: Laboratory Results 01/16/19 01/16/19 01/16/19 19:00 16:55 16:55 PT with INR INR PTT (Actin FS) VBG pH POC VBG pCO2 POC VBG pO2 VBG HCO3 VBG O2 Sat (Lauren) VBG Base Excess Sodium Potassium Chloride Carbon Dioxide Anion Gap BUN Creatinine Est GFR (CKD-EPI)AfAm Est GFR (CKD-EPI)NonAf Random Glucose Lactic Acid 1.4 2.1 H Calcium Total Bilirubin AST ALT Alkaline Phosphatase Troponin I < 0.02 Total Protein Albumin Urine Color Urine Appearance Urine pH Ur Specific [place] Urine Protein Urine Glucose (UA) Urine Ketones Urine Blood Urine Nitrite Urine Bilirubin Urine Urobilinogen Ur Leukocyte Esterase 01/16/19 01/16/19 01/16/19 16:55 16:55 16:55 PT with INR 12.10 INR 1.03 PTT (Actin FS) 30.1 VBG pH 7.45 H POC VBG pCO2 31.8 L POC VBG pO2 59.9 H VBG HCO3 21.6 L VBG O2 Sat (Lauren) 90.2 H VBG Base Excess -1.2 Sodium 141 Potassium 3.6 Chloride 109 H Carbon Dioxide 23 Anion Gap 9 BUN 11.5 Creatinine 0.8 Est GFR (CKD-EPI)AfAm 92.22 Est GFR (CKD-EPI)NonAf 79.57 Random Glucose 164 H Lactic Acid Calcium 8.8 Total Bilirubin 0.6 AST 23 ALT 47 Alkaline Phosphatase 128 H Troponin I Total Protein 7.2 Albumin 3.6 Urine Color Urine Appearance Urine pH Ur Specific [place] Urine Protein Urine Glucose (UA) Urine Ketones Urine Blood Urine Nitrite Urine Bilirubin Urine Urobilinogen Ur Leukocyte Esterase 01/16/19 16:30 PT with INR INR PTT (Actin FS) VBG pH POC VBG pCO2 POC VBG pO2 VBG HCO3 VBG O2 Sat (Lauren) VBG Base Excess Sodium Potassium Chloride Carbon Dioxide Anion Gap BUN Creatinine Est GFR (CKD-EPI)AfAm Est GFR (CKD-EPI)NonAf Random Glucose Lactic Acid Calcium Total Bilirubin AST ALT Alkaline Phosphatase Troponin I Total Protein Albumin Urine Color Yellow Urine Appearance Clear Urine pH 5.0 Ur Specific [place] 1.032 Urine Protein Negative Urine Glucose (UA) 3+ H Urine Ketones Trace H Urine Blood Negative Urine Nitrite Negative Urine Bilirubin Negative Urine Urobilinogen 0.2 Ur Leukocyte Esterase Negative 01/16/19 16:55 RBC 5.01 MCV 81.5 MCHC 33.2 RDW 13.3 MPV 7.5 Neutrophils % 83.7 H D Lymphocytes % 10.8 D Monocytes % 4.6 Eosinophils % 0.5 Basophils % 0.4 - Medications Given in the ED: ED Medications Discontinued Medications Generic Name Dose Route Start Last Admin Trade Name Freq PRN Reason Stop Dose Admin Azithromycin 500 mg 01/16/19 19:31 01/16/19 19:42 Zithromax - PO 01/16/19 19:32 500 mg ONCE ONE Administration Ibuprofen 600 mg 01/16/19 17:03 01/16/19 17:13 Motrin - PO 01/16/19 17:04 600 mg ONCE ONE Administration Sodium Chloride 1,000 ml 01/16/19 17:26 01/16/19 18:02 Normal Saline - IV 01/16/19 17:27 1,000 ml ONCE ONE Administration Liberty Osorio - Last Filed: 01/16/19 20:00> Medical Decision Making - Medical Decision Making 01/16/19 18:35 63F with a PMH of HTN, HLD, DM, and osteoporosis presents with fever, tachycardia, and tachypnea, concerning for sepsis. CBC, CMP, UA WNL. Lactic 2.1. Giving ibuprofen for antipyretic as pt took 1 g of acetaminophen 2 hours [employer]. Giving fluids as well. Pt well appearing otherwise. Temp recheck is 98.8. Pending CXR as portable showed widened mediastinum. 01/16/19 18:59 Care will be continued by Dr. Arboleda. CXR shows mild congestion near b/l yessica. <Ryne Beaulieu - Last Filed: 01/16/19 18:59> *DC/Admit/Observation/Transfer <Ryne Beaulieu - Last Filed: 01/16/19 18:59> <Liberty Arboleda - Last Filed: 01/16/19 20:00> Diagnosis at time of Disposition: Fever, Medication side effect - Discharge Dispostion Disposition: HOME Condition at time of disposition: Improved - Prescriptions Prescriptions: Azithromycin 250 mg PO DAILY #4 tablet - Referrals Referrals: Mani Aguiar MD [Primary Care Provider] - - Patient Instructions Printed Discharge Instructions: DI for Pneumonia -- Adult, DI for Fever ( Symptom) -- Adult Additional Instructions: 1) Please follow-up with your primary care doctor in the next 1-2 days. Please call tomorrow for for any urgent issues. you may have a pneumonia on right side based on chest x ray. you may have had a medication side effect from the injection for your osteoporosis, with side effect profile causing headache, fever, pain, malaise, nausea and other nonspecific symptoms. please discuss with your primary doctor 2) You were given a copy of the tests performed today. Please bring the results with you and review them with your primary care doctor. Your laboratory / imaging results were reviewed 3) If you have any worsening of symptoms or any other concerns please return to the ED immediately. Return if worsening symptoms including fevers, headache, vomiting, visual or hearing disturbances, abdominal pain, chest pain, shortness of breath, syncope, dehydration, inability to take things by mouth/vomiting, altered mental status, or worsening concerning symptoms. 4) Please continue taking your home medications as directed. your medications on discharge include Azithromycin x 4 more days starting Tomorrow (first dose today in the department) . side effects may include upset stomach, abdominal pain, vomiting, or diarrhea. do not drink alcohol with your medications. Stay well hydrated and rest adequately. Make an appointment. If you cannot follow-up with your primary care doctor please return to the ED - Post Discharge Activity Forms/Work/School Notes: Back to Work
[2019-01-16] MEDS ORDERED: AZITHROMYCIN 250 MG TABLET PO ONE (19:31)
[2019-01-16] MEDS ORDERED: AZITHROMYCIN 250 MG TABLET ONE (19:34)
[2019-01-16 19:43] VITALS: BP 123/79; PULSE 84; TEMP 98.7
--- NOTE | 2019-01-17 12:50 | EKG ---
Test Reason : Blood Pressure : / mmHG Vent. Rate : 088 BPM Atrial Rate : 088 BPM P-R Int : 150 ms QRS Dur : 074 ms QT Int : 348 ms P-R-T Axes : 021 -05 009 degrees QTc Int : 421 ms NORMAL SINUS RHYTHM NO PREVIOUS ECGS AVAILABLE Confirmed by ROBERT SANCHEZ MD ([id number]) on 01/17/2019 12:50:40 PM Referred By: Confirmed By:ROBERT SANCHEZ MD
== END 2019-01-16 20:02 | disposition home or self-care (01) ==
LOC: JER 15:56
DX: R50.9 Fever, unspecified (principal); B34.9 Viral infection, unspecified; R50.2 Drug induced fever; T50.995A Adverse effect of other drugs, medicaments and biological substances, initial encounter; Y92.018 Other place in single-family (private) house as the place of occurrence of the external cause; M19.90 Unspecified osteoarthritis, unspecified site; I10 Essential (primary) hypertension; E11.9 Type 2 diabetes mellitus without complications; Z79.84 Long term (current) use of oral hypoglycemic drugs; E78.00 Pure hypercholesterolemia, unspecified
CPT/HCPCS: 36415; 71045-TC-FY; 71046-TC-FY; 80053; 81003; 82803; 83605; 84484; 85025; 85610; 85730; 87040; 87070; 87077; 87086; 87804; 87880; 93005; 93010; 99283-25

== ENCOUNTER 2021-05-09 11:30 | Observation (INO) | payer OTHER ==
[2021-05-09] MEDS ORDERED: MECLIZINE HCL 25 MG TABLET (FP) PO ONE ×2 (12:13→15:07)
[2021-05-09] MEDS ORDERED: SODIUM CHLORIDE 0.9% 500 ML INFUS.BAG IV ONE (12:13)
[2021-05-09] MEDS ORDERED: METOCLOPRAMIDE HCL INJECTION 10 MG/2 ML VIAL IVPB ONE (12:13)
[2021-05-09] MEDS ORDERED: METOCLOPRAMIDE HCL INJECTION 10 MG/2 ML VIAL ONE (12:42)
[2021-05-09] MEDS ORDERED: MECLIZINE HCL 25 MG TABLET (FP) ONE ×2 (12:43→15:40)
[2021-05-09 13:34] LABS: BASO % 0.5 % (0-2.0); EOS % 0.5 % (0-4.5); HEMATOCRIT 43.3 % (32.4-45.2); HEMOGLOBIN 14.5 GM/dL (10.7-15.3); MCH 27.6 pg (25.7-33.7); MCHC 33.6 g/dl (32.0-36.0); MEAN CELL VOLUME 82.1 fl (80-96); MEAN PLT VOLUME 8.2 fl (7.5-11.1); PLATELET COUNT 196 10^3/uL (134-434); RBC 5.27 M/mm3 (3.60-5.2); RDW 13.3 % (11.6-15.6); WHITE BLOOD COUNT 5.3 K/mm3 (4.0-10.0)
[2021-05-09 13:54] LABS: CHLORIDE 105 mmol/L (98-107); SODIUM 138 mmol/L (136-145)
[2021-05-09 13:56] LABS: CALCIUM 8.6 mg/dL (8.5-10.1)
[2021-05-09 13:57] LABS: ALBUMIN 3.4 g/dl (3.4-5.0); ANION GAP 10 MMOL/L (8-16); BLOOD UREA NITROGEN 10.5 mg/dL (7-18); CO2 23 mmol/L (21-32); MAGNESIUM 1.7 mg/dL (1.8-2.4)
[2021-05-09 13:59] LABS: GLUCOSE,RANDOM 377 mg/dL (74-106)
[2021-05-09 14:00] LABS: CREATININE 0.8 mg/dL (0.55-1.3); SGOT/AST 31 U/L (15-37); SGPT/ALT 63 U/L (13-61)
[2021-05-09 14:01] LABS: BILIRUBIN,TOTAL 0.4 mg/dL (0.2-1); TOT PROT 7.2 g/dl (6.4-8.2)
[2021-05-09 14:02] LABS: ALK PHOS 141 U/L (45-117)
[2021-05-09] MEDS ORDERED: MAGNESIUM SULF 50% (8.12 MEQ/2 ML-1 GM VIAL) IVPB ONE (16:39)
[2021-05-09] MEDS ORDERED: MECLIZINE HCL 25 MG TABLET (FP) PO PRN (17:11)
[2021-05-09] MEDS ORDERED: ACETAMINOPHEN 325 MG TABLET (FP) PO PRN (17:11)
[2021-05-09] MEDS ORDERED: ONDANSETRON 4 MG/2 ML VIAL IVPUSH PRN (17:13)
[2021-05-09] MEDS ORDERED: SODIUM CHLORIDE 1,000 ML IV SCH (17:15)
[2021-05-09 17:31] LABS: CALCIUM 7.9 mg/dL (8.5-10.1)
[2021-05-09 17:32] LABS: BLOOD UREA NITROGEN 9.4 mg/dL (7-18); MAGNESIUM 1.7 mg/dL (1.8-2.4)
[2021-05-09 17:35] LABS: CREATININE 0.8 mg/dL (0.55-1.3); PHOSPHOROUS 2.5 mg/dL (2.5-4.9)
[2021-05-09] MEDS ORDERED: RAMIPRIL 5 MG CAPSULE ONE (17:54)
[2021-05-09 18:05] LABS: URINE APPEARANCE CLEAR; URINE BILIRUBIN NEGATIVE (NEGATIVE); URINE COLOR YELLOW; URINE GLUCOSE (UA) 3+ (NEGATIVE); URINE KETONE NEGATIVE (NEGATIVE); URINE LEUK ESTERASE NEGATIVE (NEGATIVE); URINE NITRITE NEGATIVE (NEGATIVE); URINE PROTEIN NEGATIVE (NEGATIVE); URINE UROBILINOGEN 0.2 mg/dL (0.2-1.0)
[2021-05-09] MEDS: INSULIN SLIDING SCALE (NOVOLOG) 1 VIAL SQ SCH (18:14)
[2021-05-09] MEDS: RAMIPRIL 5 MG CAPSULE PO SCH (18:15)
[2021-05-09] MEDS ORDERED: MAGNESIUM SULFATE IN WATER 2 GM/50 ML IVPB IVPB ONE (19:05)
[2021-05-09] MEDS: ATORVASTATIN CA 10 MG TABLET (FP) PO SCH (21:28)
[2021-05-09] MEDS: METOPROLOL TARTRATE 50 MG TABLET (FP) PO SCH (21:28)
[2021-05-09 22:46] VITALS: BMI 24.0
[2021-05-10] MEDS: INSULIN SLIDING SCALE (NOVOLOG) 1 VIAL SQ SCH ×3 (06:01→16:55)
[2021-05-10 08:11] LABS: HEMATOCRIT 38.5 % (32.4-45.2); HEMOGLOBIN 12.9 GM/dL (10.7-15.3); MCHC 33.5 g/dl (32.0-36.0); MEAN CELL VOLUME 80.6 fl (80-96); MEAN PLT VOLUME 7.5 fl (7.5-11.1); PLATELET COUNT 160 10^3/uL (134-434); RBC 4.78 M/mm3 (3.60-5.2); RDW 13.3 % (11.6-15.6); WHITE BLOOD COUNT 4.5 K/mm3 (4.0-10.0)
[2021-05-10 08:35] LABS: CREATININE 0.6 mg/dL (0.55-1.3)
[2021-05-10 08:37] LABS: BLOOD UREA NITROGEN 9.1 mg/dL (7-18)
[2021-05-10 08:38] LABS: MAGNESIUM 1.9 mg/dL (1.8-2.4)
[2021-05-10 08:39] LABS: CALCIUM 8.2 mg/dL (8.5-10.1)
[2021-05-10 08:40] LABS: PHOSPHOROUS 2.7 mg/dL (2.5-4.9)
[2021-05-10] MEDS: RAMIPRIL 5 MG CAPSULE PO SCH (09:50)
[2021-05-10] MEDS: ENOXAPARIN NA (PORCINE) 40 MG/0.4 ML DISP.SYRIN SQ SCH ×2 (09:50→09:58)
[2021-05-10] MEDS: METOPROLOL TARTRATE 50 MG TABLET (FP) PO SCH ×2 (09:50→21:19)
[2021-05-10] MEDS ORDERED: INSULIN (LEVEMIR) 100 UNITS/ML UNITS SQ ONE (12:45)
[2021-05-10] MEDS ORDERED: PATIENT'S OWN MEDICATION (NON-FORMULARY) (Glipizide/Metformin Hcl [Glipizide-Metformin 5-5 PO SCH (14:00)
[2021-05-10] MEDS: metFORMIN HCL 500 MG TABLET (FP) PO SCH (16:55)
[2021-05-10] MEDS ORDERED: POTASSIUM CHLORIDE TABS 20 MEQ TABLET.ER (FP) PO ONE (18:25)
[2021-05-10] MEDS: ATORVASTATIN CA 10 MG TABLET (FP) PO SCH (21:19)
[2021-05-10] MEDS: MECLIZINE HCL 25 MG TABLET (FP) PO SCH (21:19)
[2021-05-11] MEDS: INSULIN SLIDING SCALE (NOVOLOG) 1 VIAL SQ SCH ×3 (06:04→17:27)
[2021-05-11] MEDS: MECLIZINE HCL 25 MG TABLET (FP) PO SCH ×2 (06:04→13:00)
[2021-05-11] MEDS: metFORMIN HCL 500 MG TABLET (FP) PO SCH ×2 (06:04→17:23)
[2021-05-11] MEDS: RAMIPRIL 5 MG CAPSULE PO SCH (11:02)
[2021-05-11] MEDS: ENOXAPARIN NA (PORCINE) 40 MG/0.4 ML DISP.SYRIN SQ SCH (11:02)
[2021-05-11] MEDS: METOPROLOL TARTRATE 50 MG TABLET (FP) PO SCH (11:03)
[2021-05-11 14:13] VITALS: BP 134/76; PULSE 66; TEMP 98.9
[2021-05-11] MEDS ORDERED: INSULIN (LEVEMIR) 100 UNITS/ML UNITS SQ SCH (22:00)
== END 2021-05-11 18:00 | disposition home or self-care (01) ==
LOC: JER 11:30 → UNDOADMOB 16:38 → INTOOBSV 16:38 → JERBED 16:38 → J5S 20:58 → JERBED 20:58 → J5S 05-10 11:42 → JERBED 05-10 11:42
PROVIDERS: ADMIT Internal Medicine; ATTEND Nurse Practitioner Family
PROC: 3E023GC Introduction of Other Therapeutic Substance into Muscle, Percutaneous Approach (ICD-10-PCS; principal; 2021-05-10)
PROC: 3E013VG Introduction of Insulin into Subcutaneous Tissue, Percutaneous Approach (ICD-10-PCS; 2021-05-10)
PROC: 3E033GC Introduction of Other Therapeutic Substance into Peripheral Vein, Percutaneous Approach (ICD-10-PCS; 2021-05-10)
PROC: 3E0337Z Introduction of Electrolytic and Water Balance Substance into Peripheral Vein, Percutaneous Approach (ICD-10-PCS; 2021-05-10)
DX: E11.9 Type 2 diabetes mellitus without complications (principal); R42 Dizziness and giddiness; I10 Essential (primary) hypertension; E78.5 Hyperlipidemia, unspecified; R11.2 Nausea with vomiting, unspecified; Z85.3 Personal history of malignant neoplasm of breast; Z90.10 Acquired absence of unspecified breast and nipple; Z29.9 Encounter for prophylactic measures, unspecified
CPT/HCPCS: 36415; 70450-TC; 71045-TC-FY; 80048; 80053; 81003; 82550; 82962; 83036; 83735; 84100; 84484; 85025; 85027; 87077; 87086; 93005; 93010; 93306-TC; 97116-GP; 97162-GP; 99285-25; C9803; G0378; U0003; U0005

== ENCOUNTER 2021-10-04 04:35 | Day surgery (SDC) | payer OTHER ==
[2021-10-03 16:07] VITALS: BMI 22.6
[2021-10-04] MEDS ORDERED: SODIUM CHLORIDE 500 ML IV SCH (10:45)
[2021-10-04] MEDS ORDERED: MIDAZOLAM HCL 2 MG/2 ML SINGLE DOSE VIAL IVPUSH ONE ×2 (10:58→11:20)
[2021-10-04 14:14] VITALS: BP 133/76; PULSE 60; TEMP 97.8
== END 2021-10-04 13:30 | disposition home or self-care (01) ==
LOC: JRADIR 04:35
PROVIDERS: ATTEND Internal Medicine Hematology & Oncology
PROC: 0QB03ZX Excision of Lumbar Vertebra, Percutaneous Approach, Diagnostic (ICD-10-PCS; principal; 2021-10-04)
DX: C79.51 Secondary malignant neoplasm of bone (principal); Z85.3 Personal history of malignant neoplasm of breast
CPT/HCPCS: 20225; 88305-TC; 88311-TC; 88342-TC